=== PATIENT | female | born 1970 | race African-American/Black ===

== ENCOUNTER 2017-05-05 11:46 | Emergency (ER) | payer MEDICARE ==
[2017-05-05] MEDS ORDERED: Haloperidol Lactate 5 MG/ML VIAL ONE (12:02)
[2017-05-05 12:37] LABS: Bilirubin Negative (Negative); Blood, Urine Negative (Negative); Glucose, Urine (Dipstick) Negative (Negative); Ketone, Urine Negative (Negative); Nitrite Negative (Negative); Protein, Urine (Dipstick) Negative (Neg-Trace); Urobilinogen 0.2 mg/dL (0.2-1.0)
[2017-05-05 12:45] LABS: Amphetamine Not Detected (NotDetected); Methadone Not Detected (NotDetected); Methamphetamine Not Detected (NotDetected)
== END 2017-05-05 14:24 | disposition home or self-care (01) ==
LOC: ERS 11:46
DX: R56.9 Unspecified convulsions (principal); F31.9 Bipolar disorder, unspecified; F41.9 Anxiety disorder, unspecified; I10 Essential (primary) hypertension; Z79.899 Other long term (current) drug therapy
CPT/HCPCS: 51701; 80306; 81003; 81025; 93005; 96372; A4353; J1630

== ENCOUNTER 2017-07-16 17:00 | Emergency (ER) | payer MEDICARE ==
[2017-07-16 18:45] LABS: Anion Gap 8 mmol/L (10-20); BUN (Urea Nitrogen) 10 mg/dL (7.0-18.7); Calc. Creatinine Clearance 0 mL/min (70-130); Calcium 9.2 mg/dL (7.8-10.44); Carbon Dioxide 33 mmol/L (22-29); Chloride 102 mmol/L (98-107); Estimated GFR-MDRD Greater than 90; Glucose 89 mg/dL (70-105); Potassium 3.2 mmol/L (3.5-5.1); Sodium 140 mmol/L (136-145)
== END 2017-07-16 19:02 | disposition home or self-care (01) ==
LOC: ERS 17:00
DX: E87.6 Hypokalemia (principal); I10 Essential (primary) hypertension; F41.9 Anxiety disorder, unspecified; F31.9 Bipolar disorder, unspecified; Z79.899 Other long term (current) drug therapy
CPT/HCPCS: 36415; 80048; 83735; 99283

== ENCOUNTER 2017-08-24 19:09 | Emergency (ER) | payer MEDICARE ==
[2017-08-24 20:11] LABS: Anion Gap 11 mmol/L (10-20); BUN (Urea Nitrogen) 8 mg/dL (7.0-18.7); Calc. Creatinine Clearance 0 mL/min (70-130); Calcium 9.5 mg/dL (7.8-10.44); Carbon Dioxide 28 mmol/L (22-29); Chloride 102 mmol/L (98-107); Estimated GFR-MDRD Greater than 90; Glucose 96 mg/dL (70-105); Sodium 138 mmol/L (136-145)
[2017-08-24 20:15] LABS: Potassium 2.9 mmol/L (3.5-5.1)
[2017-08-24] MEDS ORDERED: Potassium Bicarbonate/Cit Ac 25 MEQ TAB PO SCH (20:45)
== END 2017-08-24 21:38 | disposition home or self-care (01) ==
LOC: ERS 19:09
DX: R56.9 Unspecified convulsions (principal); I10 Essential (primary) hypertension; F31.9 Bipolar disorder, unspecified; F41.9 Anxiety disorder, unspecified; Z79.899 Other long term (current) drug therapy
CPT/HCPCS: 36415; 80048; 99284